=== PATIENT | male | born 1995 | race Hispanic/Latino ===

== ENCOUNTER 2017-02-20 02:10 | Emergency (ER) | payer SELFPAY ==
[2017-02-20 02:25] VITALS: BP 150/94; PULSE 109; RESP 20; TEMP 98.7; O2SAT 98
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
== END 2017-02-20 04:40 | disposition home or self-care (01) ==
LOC: H.ER 02:10
DX: S09.90XA Unspecified injury of head, initial encounter (principal); S00.83XA Contusion of other part of head, initial encounter; Y04.0XXA Assault by unarmed brawl or fight, initial encounter; Y92.89 Other specified places as the place of occurrence of the external cause; J32.0 Chronic maxillary sinusitis